=== PATIENT | male | born 2000 | race Asian ===

== ENCOUNTER 2022-05-01 13:37 | Emergency (ER) | payer OTHER ==
[2022-05-01 13:55] VITALS: BP 129/64
[2022-05-01] MEDS ORDERED: predniSONE 20 MG TABLET PO STA (16:14)
--- NOTE | 2022-05-01 16:18 | ED Physician Documentation ---
PD HPI SKIN - Stated complaint Stated Complaint: ALLERGIC REACTION - Chief complaint Chief Complaint: Wound - History obtained from History obtained from: Patient - Additional information Additional information: The patient comes to the emergency department chief complaint of truncal rash now spreading to his neck. He states that the rash started about a week ago with mainly a patch in front of his left shoulder and a couple of other lesions. He states that couple of days later he noticed the development of a more widespread rash over his trunk. He has noticed reddish, scaly lesions which are itchy. He has a history of eczema, though it usually does not look like this. Patient does not have any known allergies. He denies any swelling of his face or oropharyngeal structures. He has been on Benadryl and has tried 1% hydrocortisone cream, neither which have helped. He was sent here today by his command. No other complaints at this time. Review of Systems Constitutional: reports: Reviewed and negative Eyes: reports: Reviewed and negative Ears: reports: Reviewed and negative Nose: reports: Reviewed and negative Throat: reports: Reviewed and negative Cardiac: reports: Reviewed and negative Respiratory: reports: Reviewed and negative GI: reports: Reviewed and negative : reports: Reviewed and negative Skin: reports: Rash Musculoskeletal: reports: Reviewed and negative Neurologic: reports: Reviewed and negative Psychiatric: reports: Reviewed and negative Endocrine: reports: Reviewed and negative Immunocompromised: reports: Reviewed and negative PD PAST MEDICAL HISTORY - Present Medications Home Medications: Ambulatory Orders Medication Instructions Recorded Confirmed Triamcinolone 0.1% Cream [Kenalog 1 applic TOP BID #15 gm 05/01/22 0.1% Cream] predniSONE [Deltasone] 10 mg PO [id number] #42 tab 05/01/22 - Allergies Allergies/Adverse Reactions: Allergies Allergy/AdvReac Type Severity Reaction Status Date / Time No Known Drug Allergies Allergy Verified 05/01/22 13:55 - Social History Does the pt smoke?: No Smoking Status: Never smoker PD ED PE NORMAL - Vitals Vital signs reviewed: Yes - General General: Alert and oriented X 3, No acute distress, Well developed/nourished - HEENT HEENT: Atraumatic, PERRL, EOMI, Moist mucous membranes, Other (No Facial or oropharyngeal edema) - Neck Neck: Supple, no meningeal sign - Respiratory Respiratory: No respiratory distress - Derm Derm: Warm and dry, Other (Widespread, well demarcated, deeply erythematous macules with scaly tops, in various stages of development/resolution.) - Extremities Extremities: No deformity - Neuro Neuro: Alert and oriented X 3 - Psych Psych: Normal mood, Normal affect Results - Vitals Vitals: Vital Signs - 24 hr 05/01/22 13:52 Temperature 36.5 C Heart Rate 84 Respiratory 16 Rate Blood Pressure 129/64 O2 Saturation 98 Oxygen O2 Source Room air PD Medical Decision Making - ED course Complexity details: considered differential, d/w patient ED course: I discussed with the patient that his rash does not look typical of an allergic reaction, but more consistent with pityriasis rosea. I discussed with the patient that this is a self-limited condition which is not necessarily helped by most medications, though we can try a course of steroids and Kenalog cream. Mostly though this condition has to resolve on its own. We have discussed that this May take a few weeks. Departure - Departure Disposition: 01 Home, Self Care Clinical Impression: Pityriasis rosea-like skin eruption Condition: Stable Instructions: ED Pityriasis Rosea Prescriptions: predniSONE [Deltasone] 10 mg PO [id number] #42 tab Triamcinolone 0.1% Cream [Kenalog 0.1% Cream] 1 applic TOP BID #15 gm Comments: Pityriasis rosea is a benign, rash causing condition which arises for unclear reasons and generally resolves without incident on its own after few weeks. You may try taking the steroid and steroid cream to help with the symptoms. [facility]-up with [facility].
== END 2022-05-01 16:23 | disposition home or self-care (01) ==
LOC: ED 13:37
DX: L42 Pityriasis rosea (principal)
CPT/HCPCS: 99282; 99283; J7512